=== PATIENT | female | born 1995 | race American Indian/Alaskan Native ===

== ENCOUNTER 2020-05-18 18:08 | Emergency (ER) | payer SELFPAY ==
[2020-05-18 19:19] VITALS: BP 103/68
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
== END 2020-05-18 21:15 | disposition home or self-care (01) ==
LOC: ED 18:08
DX: M54.2 Cervicalgia (principal); G89.29 Other chronic pain; Z91.040 Latex allergy status
CPT/HCPCS: 99282